=== PATIENT | male | born 2005 | race African-American/Black ===

== ENCOUNTER 2023-01-15 17:37 | Emergency (ER) | payer OTHER ==
[~2023-01-15] VITALS: Ht 180.3 cm; Wt 69.0 kg
[2023-01-15 18:03] VITALS: BP 119/88
[2023-01-15] MEDS ORDERED: LIDOCAINE 1% 10 ML VIAL SQ ONE (18:45)
[2023-01-15] MEDS ORDERED: AMOX500T2 PO (20:12)
[2023-01-15] MEDS ORDERED: BACITRACIN 0.9 GM PACKET OINTMENT TP ONE (20:30)
== END 2023-01-15 21:05 | disposition home or self-care (01) ==
LOC: EMS 17:39
DX: S01.512A Laceration without foreign body of oral cavity, initial encounter (principal); F12.90 Cannabis use, unspecified, uncomplicated; W50.0XXA Accidental hit or strike by another person, initial encounter; Y93.89 Activity, other specified; Y92.89 Other specified places as the place of occurrence of the external cause; Y99.8 Other external cause status
CPT/HCPCS: 99283; 12011; J3490